=== PATIENT | female | born 1985 | race Caucasian/White ===

== ENCOUNTER 2020-04-04 21:58 | Emergency (ER) | payer BC ==
[~2020-04-04] VITALS: Ht 170.2 cm; Wt 104.5 kg
[2020-04-04] MEDS ORDERED: IBUPROFEN 600 MG TABLET PO ONE (23:45)
[2020-04-05 01:23] VITALS: BP 141/89
== END 2020-04-05 01:27 | disposition home or self-care (01) ==
LOC: EMS 21:58
DX: M79.662 Pain in left lower leg (principal); Z88.0 Allergy status to penicillin
CPT/HCPCS: 93971

== ENCOUNTER 2022-11-17 12:57 | Emergency (ER) | payer BC, OTHER ==
[~2022-11-17] VITALS: Ht 170.2 cm; Wt 107.0 kg
[2022-11-17 13:01] VITALS: BP 127/84
[2022-11-17] MEDS ORDERED: ALBU8HFA IH (13:06)
== END 2022-11-17 14:38 | disposition home or self-care (01) ==
LOC: EMS 13:06
DX: J45.909 Unspecified asthma, uncomplicated (principal); Z88.8 Allergy status to other drugs, medicaments and biological substances
CPT/HCPCS: 71045; 99283

== ENCOUNTER 2022-12-16 10:50 | Emergency (ER) | payer OTHER ==
[~2022-12-16] VITALS: Ht 170.2 cm; Wt 109.1 kg
[~2022-12-16 10:50] MED LIST: ALBU8HFA IH
[2022-12-16 10:55] VITALS: BP 126/95
[2022-12-16 11:16] LABS: COVID AG,FIA SOURCE NASAL SWAB
[2022-12-16 11:45] LABS: INFLUENZA TYPE A NEGATIVE FOR TYPE A (NEGATIVE); INFLUENZA TYPE B NEGATIVE FOR TYPE B (NEGATIVE)
[2022-12-16] MEDS ORDERED: ALBUTEROL SULFATE HFA 90 MCG/PUFF 8 GM INHALER IH ONE (12:15)
== END 2022-12-16 12:28 | disposition home or self-care (01) ==
LOC: EMS 10:56
DX: R05.9 Cough, unspecified (principal); J45.909 Unspecified asthma, uncomplicated; Z88.8 Allergy status to other drugs, medicaments and biological substances; Z20.822 Contact with and (suspected) exposure to COVID-19
CPT/HCPCS: 71046; 87804; 94640; 99284; J3535